=== PATIENT | female | born 1925 | race Caucasian/White ===

== ENCOUNTER 2016-04-24 14:49 | Emergency (ER) | payer MEDICARE ==
[~2016-04-24] VITALS: Ht 160 cm; Wt 65.3 kg
[~2016-04-24 14:49] MED LIST: ASPI-983 PO; ATEN50TA PO; ATENOLOL PO; ATOR40TA70 PO; BISA-10 PO; BUDE10.2; BUDE6HFA IH; CALC-342 PO; CLN.1TRX PO; DILT90TA; DILT90TA PO; LISI-556; LISI1TAB6 PO; MECL-124 PO; RT-ALBUINH IH; VIT1CAPS9 PO
--- OUTSIDE RECORDS SUMMARY | 2016-04-24 14:55 | XMS REPORT | Continuity of Care Document ---
Author Author [facility] Organization [facility] Address Unknown Phone Unavailable Care Team Providers Care Industrial Maintenance Tech Name Role Phone LENORE TOBIAS MD PCP Insurance Providers Payer Name Policy Number Subscriber Name Relationship [employer] [id number] Criselda Mcgregor 18 Self / Same As Patient Advance Directives Directive Response Recorded Date/Time Advance Directives No 06/30/15 1:46pm Resuscitation Status DNR-Pt Request 06/30/15 1:46pm Chief Complaint and Reason for Visit Chief Complaint Dizziness/Syncope Reason for Visit [id number] Problems Active Problems Medical Problem Onset Date Status BPPV (benign paroxysmal positional vertigo) Unknown Acute Chest pain Unknown Acute DIZZINESS SECONDARY TO HYPERTENSION Unknown Acute Labile hypertension Unknown Acute Non-ST elevation myocardial infarction (NSTEMI) Unknown Acute Medications Current Home Medications Medication Dose Units Route Directions Days/Qty Instructions Start Date Budesonide/Formoterol Fumarate 10.2 Gm 2 Puff Inhalation Twice A Day 04/04/10 Atenolol 50 Mg 50 Mg Oral Daily 11/28/14 Aspirin 81 Mg 81 Mg Oral Daily 11/28/14 Calcium Citrate/Vitamin D3 1 Each 1 Tab Oral Daily 11/28/14 Bisacodyl 5 Mg 5 Mg Oral Daily as needed for Constipation 11/28/14 Albuterol Sulfate 8.5 Gm 2 Puff Inhalation Every 4HRS as needed for Shortness Of Breath 11/28/14 Atorvastatin Calcium 40 Mg 30 06/30/15 Diltiazem Hcl 90 Mg 180 06/30/15 Lisinopril 5 Mg 30 06/30/15 Budesonide/Formoterol Fumarate 10.2 Gm 10 06/30/15 Past Home Medications Medication Directions Ordered Status [Atenolol] , 1 Tab Oral Daily 04/04/10 Discontinued Hctz/Lisinopril (Zestoretic) 1 Each Tablet, 1 Each Oral Daily 01/13/13 Discontinued Clonidine Hcl 0.1 Mg Tab, 0.1 Mg Oral Twice A Day 01/13/13 Discontinued Vit C/Vit E/Lutein/Min/[place]-3 1 Each Capsule, 1 Cap Oral Daily 11/28/14 Discontinued Diltiazem Hcl 90 Mg Tablet, 90 Mg Oral Twice A Day 11/28/14 Discontinued Social History Social History Problem Response Recorded Date/Time Alcohol Use Denies Use 06/30/2015 1:46pm Recreational Drug Use No 06/30/2015 1:46pm Recent Foreign Travel No 06/30/2015 1:47pm Recent Infectious Disease Exposure No 06/30/2015 1:47pm Hospitalization with Isolation Denies 06/30/2015 1:47pm Smoking Status Never a Smoker 06/30/2015 1:46pm Do you dip or chew tobacco? No 06/30/2015 1:46pm Query Response Start Date Stop Date Smoking Status Never a Smoker Hospital Discharge Instructions No hospital discharge instructions. Plan of Care Discharge Date 06/30/15 3:06pm Disposition 01 HOME, SELF-CARE Condition at Discharge Improved Instructions/Education Provided Vertigo (ED) Prescriptions See Medication Section Referrals LENORE TOBIAS MD - Primary Care Physician Additional Instructions/Education 1. Follow up with Dr Tobias this week 2. Return to ER for any concerns All discharge instructions reviewed with patient and/or family. Voiced understanding. Functional Status Query Response Date Recorded Patient Orientation Person Place Time Situation June 30, 2015 1:50pm Comprehension Ability Understands Concepts June 30, 2015 1:50pm Allergies, Adverse Reactions, Alerts No known allergies. Immunizations Name Given Type Date of Pneumonia Vaccine 02/08/09 Historical Date of Influenza Vaccine 11/21/14 Historical Vital Signs Acute Vital Signs Vital Response Date/Time Temperature (Fahrenheit) 97.5 degrees F (97.6 - 99.5) 06/30/2015 1:47pm Temperature (Calculated Celsius) 36.58860 degrees C (36.4 - 37.5) 06/30/2015 1:47pm Temperature Source Temporal 06/30/2015 1:47pm Pulse Rate (adult) 95 bpm (60 - 90) 06/30/2015 1:47pm Respiratory Rate 18 bpm (12 - 24) 06/30/2015 1:47pm O2 Sat by Pulse Oximetry 94 % (88 - 100) 06/30/2015 1:47pm Blood Pressure 199/99 mm Hg 06/30/2015 1:47pm Blood Pressure Mean 132 mm Hg 06/30/2015 1:47pm Pain Pain Intensity 0 06/30/2015 1:47pm Height (Feet) 5 feet 06/30/2015 1:47pm Height (Inches) 3.00 inches 06/30/2015 1:47pm Height (Calculated Centimeters) 160.271586 cm 06/30/2015 1:47pm Weight (Pounds) 167 pounds 06/30/2015 1:47pm Weight (Ounces) 14.0 oz 06/30/2015 1:47pm Weight (Calculated Grams) 68074.820 gm 06/30/2015 1:47pm Weight (Calculated Kilograms) 76.036560 kilograms 06/30/2015 1:47pm Calculated BMI 30.29 06/30/2015 1:47pm Results Laboratory Results Test Name Result Units Flags Reference Collection Date/Time Result Date/ Time Comments White Blood Count 5.6 10^3/uL 4.3-11.0 06/30/2015 2:27pm 06/30/2015 2: 34pm Red Blood Count 4.16 10^6/uL L 4.35-5.85 06/30/2015 2:27pm 06/30/2015 2: 34pm Hemoglobin 13.2 G/DL 11.5-16.0 06/30/2015 2:27pm 06/30/2015 2:34pm Hematocrit 39 % 35-52 06/30/2015 2:27pm 06/30/2015 2:34pm Mean Corpuscular Volume 93 FL 80-99 06/30/2015 2:27pm 06/30/2015 2: 34pm Mean Corpuscular Hemoglobin 32 PG 25-34 06/30/2015 2:27pm 06/30/2015 2: 34pm Mean Corpuscular Hemoglobin Concent 34 G/DL 32-36 06/30/2015 2: 2:34pm Red Cell Distribution Width 13.4 % 10.0-14.5 06/30/2015 2:2015 2:34pm Platelet Count 162 10^3/uL 130-400 06/30/2015 2:06/30/2015 2:34pm Mean Platelet Volume 11.2 FL H 7.4-10.4 06/30/2015 2:06/30/2015 2: 34pm Neutrophils (%) (Auto) 69 % 42-75 06/30/2015 2:06/30/2015 2:34pm Lymphocytes (%) (Auto) 22 % 12-44 06/30/2015 2:06/30/2015 2:34pm Monocytes (%) (Auto) 8 % 0-12 06/30/2015 2:06/30/2015 2:34pm Eosinophils (%) (Auto) 1 % 0-10 06/30/2015 2:06/30/2015 2:34pm Basophils (%) (Auto) 0 % 0-10 06/30/2015 2:06/30/2015 2:34pm Neutrophils # (Auto) 3.9 X 10^3 1.8-7.8 06/30/2015 2:06/30/2015 2: 34pm Lymphocytes # (Auto) 1.2 X 10^3 1.0-4.0 06/30/2015 2:06/30/2015 2: 34pm Monocytes # (Auto) 0.4 X 10^3 0.0-1.0 06/30/2015 2:06/30/2015 2: 34pm Eosinophils # (Auto) 0.1 10^3/uL 0.0-0.3 06/30/2015 2:06/30/2015 2 :34pm Basophils # (Auto) 0.0 10^3/uL 0.0-0.1 06/30/2015 2:06/30/2015 2: 34pm Prothrombin Time 13.9 SEC 12.2-14.7 06/30/2015 2:06/30/2015 2: 45pm INR Comment 1.1 0.8-1.4 06/30/2015 2:27pm 06/30/2015 2:45pm INTERPRETIVE DATA SUGGESTED THERAPEUTIC RANGE FOR INR'S: VENOUS THROMBOSIS, PULMONARY EMBOLISM, OR PREVENTION OF SYSTEMIC EMBOLISM (EG. IN ATRIAL FIBRILLATION): 2.0 - 3.0 MECHANICAL PROSTHETIC HEART VALVES: 2.5 - 3.5* *NOTE: INR'S UP TO 4.5 MAY BE NECESSARY IN SELECTED GROUPS OF HIGH RISK PATIENTS. [employer] CONSENSUS CONFERENCE ON ANTITHROMBOTIC THERAPY (2000). Urine Color YELLOW 06/30/2015 2:28pm 06/30/2015 2:44pm Urine Clarity CLEAR 06/30/2015 2:28pm 06/30/2015 2:44pm Urine pH 7 5-9 06/30/2015 2:28pm 06/30/2015 2:44pm Urine Specific [place] 1.015 * 1.016-1.022 06/30/2015 2:28pm 2015 2:44pm Urine Protein NEGATIVE NEGATIVE 06/30/2015 2:28pm 06/30/2015 2:44pm Urine Glucose (UA) NEGATIVE NEGATIVE 06/30/2015 2:28pm 06/30/2015 2: 44pm Urine RBC (Auto) 2+ * NEGATIVE 06/30/2015 2:28pm 06/30/2015 2:44pm Urine Ketones NEGATIVE NEGATIVE 06/30/2015 2:28pm 06/30/2015 2:44pm Urine Nitrite NEGATIVE NEGATIVE 06/30/2015 2:28pm 06/30/2015 2:44pm Urine Bilirubin NEGATIVE NEGATIVE 06/30/2015 2:pm 06/30/2015 2: 44pm Urine Urobilinogen NORMAL MG/DL NORMAL 06/30/2015 2:28pm 06/30/2015 2: 44pm Urine Leukocyte Esterase NEGATIVE NEGATIVE 06/30/2015 2:28pm 2015 2:44pm Urine RBC 2-5 /HPF * 06/30/2015 2:28pm 06/30/2015 2:44pm Urine WBC NONE /HPF 06/30/2015 2:28pm 06/30/2015 2:44pm Urine Bacteria NEGATIVE /HPF 06/30/2015 2:28pm 06/30/2015 2:44pm Urine Squamous Epithelial Cells 2-5 /HPF 06/30/2015 2:28pm 2015 2:44pm Urine Crystals NONE /LPF 06/30/2015 2:06/30/2015 2:44pm Urine Casts NONE /LPF 06/30/2015 2:06/30/2015 2:44pm Urine Mucus NEGATIVE /LPF 06/30/2015 2:06/30/2015 2:44pm Urine Culture Indicated NO 06/30/2015 2:06/30/2015 2:44pm Sodium Level 138 MMOL/L 135-145 06/30/2015 2:06/30/2015 2:55pm Potassium Level 4.6 MMOL/L 3.6-5.0 06/30/2015 2:06/30/2015 2:55pm Chloride Level 104 MMOL/L 98-107 06/30/2015 2:06/30/2015 2:55pm Carbon Dioxide Level 22 MMOL/L 21-32 06/30/2015 2:06/30/2015 2: 55pm Anion Gap 12 MMOL/L 5-14 06/30/2015 2:06/30/2015 2:55pm Blood Urea Nitrogen 23 MG/DL H 7-18 06/30/2015 2:06/30/2015 2:55pm Creatinine 0.87 MG/DL 0.60-1.30 06/30/2015 2:06/30/2015 2:55pm BUN/Creatinine Ratio 06/30/2015 2:06/30/2015 2:55pm Estimat Glomerular Filtration Rate > 60 06/30/2015 2:2015 2:55pm GFR INTERPRETIVE DATA UNITS FOR ESTIMATED GFR (eGFR): mL/min/1.73 M2 REFERENCE RANGE FOR ESTIMATED GFR (eGFR) eGFR NORMAL eGFR >60 MODERATELY DECREASED eGFR 30-59 SEVERLY DECREASED eGFR 15-29 KIDNEY FAILURE <15 (OR DIALYSIS) Glucose Level 191 MG/DL H 70-105 06/30/2015 2:06/30/2015 2:55pm Calcium Level 9.0 MG/DL 8.5-10.1 06/30/2015 2:06/30/2015 2:55pm Total Bilirubin 0.4 MG/DL 0.1-1.0 06/30/2015 2:06/30/2015 2:55pm Alkaline Phosphatase 44 U/L 40-136 06/30/2015 2:27pm 06/30/2015 2:55pm Aspartate Amino Transf (AST/SGOT) 17 U/L 5-34 06/30/2015 2:27pm 2015 2:55pm Alanine Aminotransferase (ALT/SGPT) 13 U/L 0-55 06/30/2015 2:27pm 06/29 2:55pm Total Protein 6.2 G/DL L 6.4-8.2 06/30/2015 2:27pm 06/30/2015 2:55pm Albumin 4.0 G/DL 3.2-4.5 06/30/2015 2:27pm 06/30/2015 2:55pm Procedures No known history of procedures. Encounters Encounter Location Arrival/Admit Date Discharge/Depart Date Attending Provider Departed Emergency Room [facility] 06/30/15 1:32pm 06/29 3:06pm MERNA ESPINOZA APRN Recent Diagnosis
--- NOTE | 2016-04-24 15:09 | ED General ---
General Stated Complaint: R SIDE OF HEAD INJ Source of Information: Patient Exam Limitations: No Limitations History of Present Illness Time Seen by Provider: 15:07 Initial Comments To ER with reports of head injury. Patient states that she was working outside he became dizzy and then passed out. She states that she occasionally gets "dizzy spells". At this time she feels back to normal. She states that she did briefly lose consciousness. She has a hematoma to the right side of the top of her scalp. Her only anticoagulant is a daily aspirin. At this time she feels otherwise back to normal with exception of a headache. She denies injuring herself anywhere else, no other pains, ambulatory after this event. She denies any shortness of breath, palpitations or other associated symptoms. Timing/Duration: 1-2 Days Severity: Moderate Allergies and Home Medications Allergies Coded Allergies: No Known Drug Allergies (Unverified , 04/04/10) Home Medications Albuterol Sulfate 8.5 Gm Hfa.aer.ad 2 PUFF IH Q4H PRN PRN SHORTNESS OF BREATH ( Reported) Aspirin 81 Mg Tablet.dr 81 MG PO DAILY (Reported) Atenolol 50 Mg Tablet 50 MG PO DAILY (Reported) Atorvastatin Calcium 40 Mg Tablet #30 (Reported) Bisacodyl 5 Mg Tablet.dr 5 MG PO DAILY PRN PRN CONSTIPATION (Reported) Budesonide/Formoterol Fumarate 10.2 Gm Hfa.aer.ad 2 PUFF IH BID (Reported) Budesonide/Formoterol Fumarate 10.2 Gm Hfa.aer.ad #10 (Reported) Calcium Citrate/Vitamin D3 1 Each Tablet 1 TAB PO DAILY (Reported) Diltiazem HCl 90 Mg Tablet #180 (Reported) Lisinopril 5 Mg Tablet #30 (Reported) Constitutional: see HPI EENTM: see HPI Respiratory: no symptoms reported Cardiovascular: see HPINo chest pain, No edema, No Hx of Intervention, No palpitations, syncope Genitourinary: no symptoms reported Musculoskeletal: no symptoms reported Skin: no symptoms reported Psychiatric/Neurological: No Symptoms Reported Hematologic/Lymphatic: No Symptoms Reported Past Iwfrpmy-Naoodh-Vuzegw Hx Patient Social History Recent Foreign Travel: No Contact w/Someone Who Travel: No Immunizations Up To Date Date of Pneumonia Vaccine: Feb 08, 2009 Date of Influenza Vaccine: Nov 21, 2014 Surgeries HX Surgeries: Yes (CATARACTS REMOVE) Surgeries: Adenoidectomy, CABG, Eye Surgery, Gallbladder, Tonsillectomy Respiratory Hx Respiratory Disorders: Yes Respiratory Disorders: COPD, Emphysema Cardiovascular Hx Cardiac Disorders: Yes (aortic stenosis, pulmonary hypertension) Cardiac Disorders: Hypertension Neurological Hx Neurological Disorders: No Reproductive System Hx Reproductive Disorders: No Genitourinary Hx Genitourinary Disorders: No Gastrointestinal Hx Gastrointestinal Disorders: No Musculoskeletal Hx Musculoskeletal Disorders: No Endocrine Hx Endocrine Disorders: No HEENT HX ENT Disorders: Yes HEENT Disorders: Cataract Hearing Impairment: Hard of Hearing Cancer Hx Cancer: No Psychosocial Hx Psychiatric Problems: No Integumentary HX Skin/Integumentary Disorder: No Blood Transfusions Hx Blood Disorders: No Family Medical History Significant Family History: Heart Disease Physical Exam Vital Signs Vital Sign - Last 12Hours 04/24/16 15:00 Temp 98.1 Pulse 95 Resp 16 B/P 151/80 Pulse Ox 96 Capillary Refill : General Appearance: No Apparent Distress WD/WN Other (alert, GCS 15, talkative and pleasant) Eyes: Bilateral Eye EOMI, Bilateral Eye Normal Inspection, Bilateral Eye PERRL HEENT: PERRL/EOMI TMs Normal Other (there isn't actively oozing stellate laceration to the right parietal scalp) Neck: Full Range of MotionNo Tender Lateral, No Tender Midline Respiratory: No Accessory Muscle Use No Respiratory Distress Cardiovascular: Regular Rate, Rhythm No Edema Normal Peripheral Pulses Gastrointestinal: Non Tender Soft Back: Other (she does have an abrasion to the right scapula, a half-dollar sized ecchymosis medial to the left scapula) Extremity: Normal Capillary Refill Normal Inspection Neurologic/Psychiatric: Alert Oriented x3 No Motor/Sensory Deficits Focused Exam Lactic Acid Level Laboratory Tests Test 04/24/16 15:34 Alanine Aminotransferase (ALT/SGPT) 16U/L (0-55) Albumin 4.0G/DL (3.2-4.5) Alkaline Phosphatase 39U/L (40-136) L Anion Gap 9MMOL/L (5-14) Aspartate Amino Transf (AST/SGOT) 22U/L (5-34) B-Type Natriuretic Peptide 88.5PG/ML (<100.0) BUN/Creatinine Ratio 23 Blood Urea Nitrogen 16MG/DL (7-18) Calcium Level 8.9MG/DL (8.5-10.1) Carbon Dioxide Level 23MMOL/L (21-32) Chloride Level 95MMOL/L (98-107) L Creatinine 0.69MG/DL (0.60-1.30) Estimat Glomerular Filtration Rate > 60 Glucose Level 101MG/DL (70-105) Magnesium Level 1.8MG/DL (1.8-2.4) Potassium Level 4.2MMOL/L (3.6-5.0) Sodium Level 127MMOL/L (135-145) L Total Bilirubin 0.7MG/DL (0.1-1.0) Total Protein 6.0G/DL (6.4-8.2) L Troponin I < 0.30NG/ML (<0.30) Laceration Repair : Wound Location: Scalp Wound Length (cm): 3 Wound's Depth, Shape: sub Q Wound Explored: clean Irrigated w/ Saline (ccs): 500 Anesthesia: Lidocaine w/ Epi Volume Anesthetic (ccs): 3 Suture: Prolene, Vicryl Suture Size: 3-0, 4-0 Number of Sutures: 5 Layer Closure?: 1 Number Deep Layer Sutures: 0 Progress Anesthetized with 3ml of 1% lidocaine with epinephrine. peroxide used to remove clots adherent to hair and wound irrigated with saline. Small stream of pulsatile bleeding noted. Closed with 5 sutures. 3 of these are size 4-0 prolene simple interrupted. 2 are 3-0 vicryl simple interrupted. Progress/Results/Core Measures Results/Orders Lab Results Laboratory Tests Test 04/24/16 15:34 04/24/16 16:30 Range/Units Alanine Aminotransferase (ALT/SGPT) 16 0-55 U/L Albumin 4.0 3.2-4.5 G/DL Alkaline Phosphatase 39 L 40-136 U/L Anion Gap 9 5-14 MMOL/L Aspartate Amino Transf (AST/SGOT) 22 5-34 U/L B-Type Natriuretic Peptide 88.5 <100.0 PG/ML BUN/Creatinine Ratio 23 Basophils # (Auto) 0.0 0.0-0.1 10^3/uL Basophils (%) (Auto) 1 0-10 % Blood Urea Nitrogen 16 7-18 MG/DL Calcium Level 8.9 8.5-10.1 MG/DL Carbon Dioxide Level 23 21-32 MMOL/L Chloride Level 95 L 98-107 MMOL/L Creatinine 0.69 0.60-1.30 MG/DL Eosinophils # (Auto) 0.0 0.0-0.3 10^3/uL Eosinophils (%) (Auto) 1 0-10 % Estimat Glomerular Filtration Rate > 60 Glucose Level 101 70-105 MG/DL Hematocrit 37 35-52 % Hemoglobin 12.9 11.5-16.0 G/DL Lymphocytes # (Auto) 1.9 1.0-4.0 X 10^3 Lymphocytes (%) (Auto) 33 12-44 % Magnesium Level 1.8 1.8-2.4 MG/DL Mean Corpuscular Hemoglobin 32 25-34 PG Mean Corpuscular Hemoglobin Concent 35 32-36 G/DL Mean Corpuscular Volume 91 80-99 FL Mean Platelet Volume 10.1 7.4-10.4 FL Monocytes # (Auto) 0.4 0.0-1.0 X 10^3 Monocytes (%) (Auto) 8 0-12 % Neutrophils # (Auto) 3.3 1.8-7.8 X 10^3 Neutrophils (%) (Auto) 58 42-75 % Platelet Count 192 130-400 10^3/uL Potassium Level 4.2 3.6-5.0 MMOL/L Red Blood Count 4.03 L 4.35-5.85 10^6/uL Red Cell Distribution Width 12.2 10.0-14.5 % Sodium Level 127 L 135-145 MMOL/L Total Bilirubin 0.7 0.1-1.0 MG/DL Total Protein 6.0 L 6.4-8.2 G/DL Troponin I < 0.30 <0.30 NG/ML White Blood Count 5.7 4.3-11.0 10^3/uL Urine Bacteria TRACE /HPF Urine Bilirubin NEGATIVE NEGATIVE Urine Casts NONE /LPF Urine Clarity SLIGHTLY CLOUDY Urine Color YELLOW Urine Crystals NONE /LPF Urine Culture Indicated NO Urine Glucose (UA) NEGATIVE NEGATIVE Urine Ketones 1+ H NEGATIVE Urine Leukocyte Esterase 1+ H NEGATIVE Urine Mucus NEGATIVE /LPF Urine Nitrite NEGATIVE NEGATIVE Urine Protein 1+ H NEGATIVE Urine RBC 5-10 H /HPF Urine RBC (Auto) 2+ H NEGATIVE Urine Specific [place] 1.010 L 1.016-1.022 Urine Squamous Epithelial Cells >50 H /HPF Urine Urobilinogen NORMAL NORMAL MG/DL Urine WBC 0-2 /HPF Urine pH 7 5-9 My Orders Orders-MERNA ESPINOZA APRN Cbc With Automated Diff (04/24/16 15:05) Comprehensive Metabolic Panel (04/24/16 15:05) Ua Culture If Indicated (04/24/16 15:05) Chest Pa/Lat (2 View) (04/24/16 15:05) Ekg Tracing (04/24/16 15:05) Continuous Ekg Monitoring (04/24/16 15:05) Troponin I (04/24/16 15:05) Magnesium (04/24/16 15:05) BNP (04/24/16 15:05) Ct Head/Cervical Spine Wo (04/24/16 15:05) Lidocaine/Epi 1% 1:100,000 (Xylocaine /E (04/24/16 15:45) Dipht,Pertuss(Acell),Tet Adult (Boostrix (04/24/16 16:30) Amoxicillin/Clavulanate Tablet (Augmenti (04/24/16 16:30) Medications Given in ED Current Medications Medications Dose Ordered Sig/Kev Route Start Time Stop Time Status Last Admin Dose Admin Diphtheria/ Tetanus/Acell Pertussis 0.5 ml ONCE ONCE IM 04/24/16 16:30 04/24/16 16:31 DC 04/24/16 16:35 0.5 ML Lidocaine/ Epinephrine 20 ml ONCE ONCE INJ 04/24/16 15:45 04/24/16 15:46 DC 04/24/16 16:00 20 ML Vital Signs/I&O Vital Sign - Last 12Hours 04/24/16 15:00 Temp 98.1 Pulse 95 Resp 16 B/P 151/80 Pulse Ox 96 Diagnostic Imaging Diagonstic Imaging: CT Comments NAME: JENNIFER MCGREGOR [facility] REC#: [id number] PT STATUS: REG ER : 1925 PHYSICIAN: MERNA ESPINOZA APRN ADMIT DATE: 04/24/16/ER Draft Date of Exam:04/24/16 CT HEAD/CERVICAL SPINE WO PROCEDURE: CT head and CT cervical spine without contrast. TECHNIQUE: Multiple contiguous axial images were obtained through the brain and cervical spine without the use of intravenous contrast. Sagittal and coronal reformations through the cervical spine were then performed. INDICATION: Fall. Head injury. COMPARISON: CT head without contrast 06/30/2015. FINDINGS: CT head: Large scalp hematoma/contusion overlying the right parietal bone. Osseous structures are intact. No intracranial hemorrhage, mass effect, hydrocephalus or extra-axial fluid collections. Generalized cerebral and cerebellar parenchymal volume loss. Intracranial vascular calcifications. No CT findings of acute infarction. The visualized paranasal sinuses and mastoids are negative. CT cervical spine: Mild accentuation of the normal cervical lordosis may be positional. No acute fractures. Vertebral body heights are maintained. Moderate to advanced degenerative endplate changes are most marked at C5-C7. No evidence of high-grade spinal canal narrowing on this noncontrast exam. Uncovertebral and facet arthropathy contributes to scattered mild and moderate neuroforaminal narrowing. Arterial calcifications including the carotid bifurcations. Enlarged thyroid gland is partially visualized. IMPRESSION: 1. Large scalp hematoma/contusion overlying the right parietal bone. No fractures. No acute intracranial CT findings. 2. No acute CT findings in the cervical spine. 3. Partially visualized enlarged thyroid gland. Dictated on workstation # [id number] Dict: 04/24/16 1532 Trans: 04/24/16 1541 [facility] [id number] Interpreted by: CANDI MCDERMOTT MD Electronically signed by: Departure Communication Progress Notes Family reports that patient has passed out several times and that she has seen her doctor for this. During her stay in the emergency room she is completely asymptomatic, alert and without palpitations syncope or near syncope, no shortness of breath. EKG shows a pre-existing left bundle-branch block. No chest pain. She is ambulatory to the bathroom. She will be discharged to home for outpatient follow-up in the care of her adult children. Impression Impression: Primary Impression: Scalp laceration Additional Impression: Fall Disposition: HOME, SELF-CARE Condition: Stable Departure-Patient Inst. Decision time for Depature: 16:55 Referrals: LENORE ALSTON MD (PCP/Family) Primary Care Physician Patient Instructions: Laceration Repair With Stitches (DC) Add. Discharge Instructions: 1. Return to the emergency room for any recurrent episodes of passing out, chest pain shortness of breath or any other symptoms at concern. 2. Return to the emergency room in 7 days to have the stitches removed 3. You may wash your hair this evening to get the blood out. Copy Copies To 1: LENORE ALSTON MD, PETER J APRN Apr 24, 2016 15:09
--- NOTE | 2016-04-24 15:30 | Diagnostic Imaging Report ---
INDICATION: Syncopal episode, right posterior head trauma. COMPARISON STUDY: Chest radiograph from November 2014. FINDINGS: Ill-defined density in the right infrahilar region is again identified. This is unchanged or slightly smaller. Coronary artery bypass graft changes are again identified. Heart size and vascularity are normal. There are no pleural effusions. IMPRESSION: Stable chest. Dictated by: Dictated on workstation # [id number]
[2016-04-24 15:38] LABS: BASOPHILS % (AUTO) 1 % (0-10); EOSINOPHILS % (AUTO) 1 % (0-10); LYMPHOCYTES # (AUTO) 1.9 X 10^3 (1.0-4.0); LYMPHOCYTES % (AUTO) 33 % (12-44); MEAN CORPUSCULAR HEMOGLOBIN 32 PG (25-34); MEAN CORPUSCULAR HGB CONC 35 G/DL (32-36); MEAN CORPUSCULAR VOLUME 91 FL (80-99); MEAN PLATELET VOLUME 10.1 FL (7.4-10.4); MONOCYTES # (AUTO) 0.4 X 10^3 (0.0-1.0); MONOCYTES % (AUTO) 8 % (0-12); NEUTROPHILS # (AUTO) 3.3 X 10^3 (1.8-7.8); NEUTROPHILS % (AUTO) 58 % (42-75); PLATELET COUNT 192 10^3/uL (130-400); RED BLOOD COUNT 4.03 10^6/uL (4.35-5.85); RED CELL DISTRIBUTION WIDTH 12.2 % (10.0-14.5); WHITE BLOOD COUNT 5.7 10^3/uL (4.3-11.0)
--- NOTE | 2016-04-24 15:41 | Diagnostic Imaging Report ---
PROCEDURE: CT head and CT cervical spine without contrast. TECHNIQUE: Multiple contiguous axial images were obtained through the brain and cervical spine without the use of intravenous contrast. Sagittal and coronal reformations through the cervical spine were then performed. INDICATION: Fall. Head injury. COMPARISON: CT head without contrast 06/30/2015. FINDINGS: CT head: Large scalp hematoma/contusion overlying the right parietal bone. Osseous structures are intact. No intracranial hemorrhage, mass effect, hydrocephalus or extra-axial fluid collections. Generalized cerebral and cerebellar parenchymal volume loss. Intracranial vascular calcifications. No CT findings of acute infarction. The visualized paranasal sinuses and mastoids are negative. CT cervical spine: Mild accentuation of the normal cervical lordosis may be positional. No acute fractures. Vertebral body heights are maintained. Moderate to advanced degenerative endplate changes are most marked at C5-C7. No evidence of high-grade spinal canal narrowing on this noncontrast exam. Uncovertebral and facet arthropathy contributes to scattered mild and moderate neuroforaminal narrowing. Arterial calcifications including the carotid bifurcations. Enlarged thyroid gland is partially visualized. IMPRESSION: 1. Large scalp hematoma/contusion overlying the right parietal bone. No fractures. No acute intracranial CT findings. 2. No acute CT findings in the cervical spine. 3. Partially visualized enlarged thyroid gland. Dictated by: Dictated on workstation # [id number]
[2016-04-24] MEDS ORDERED: LIDOCAINE/EPI 1%-1:100,000 (XYLOCAINE) 20ML INJ ONE (15:45)
[2016-04-24 15:57] LABS: ALANINE AMINOTRANSFERASE 16 U/L (0-55); ANION GAP 9 MMOL/L (5-14); ASPARTATE AMINO TRANSFERASE 22 U/L (5-34); BILIRUBIN,TOTAL 0.7 MG/DL (0.1-1.0); BLOOD UREA NITROGEN 16 MG/DL (7-18); BUN/CREATININE RATIO 23; CALCIUM 8.9 MG/DL (8.5-10.1); CARBON DIOXIDE 23 MMOL/L (21-32); CHLORIDE 95 MMOL/L (98-107); CREATININE SERUM 0.69 MG/DL (0.60-1.30); GFR ESTIMATED > 60; GLUCOSE 101 MG/DL (70-105); MAGNESIUM 1.8 MG/DL (1.8-2.4); POTASSIUM 4.2 MMOL/L (3.6-5.0); SODIUM 127 MMOL/L (135-145)
[2016-04-24 16:03] LABS: TROPONIN I < 0.30 NG/ML (<0.30)
[2016-04-24] MEDS ORDERED: TETANUS,DIPTH,PERTUSS P/F (BOOSTRIX) 0.5 ML VIAL IM ONE (16:30)
[2016-04-24] MEDS ORDERED: AUGMENTIN 500 MG TAB (AMOXICILLIN/CLAVULANATE) PO SCH (16:30)
[2016-04-24 16:38] LABS: BILIRUBIN,URINE NEGATIVE (NEGATIVE); KETONES,URINE 1+ (NEGATIVE); LEUKOCYTE ESTERASE ,URINE 1+ (NEGATIVE); NITRITE,URINE NEGATIVE (NEGATIVE); PH,URINE 7 (5-9); PROTEIN,URINE 1+ (NEGATIVE); UROBILINOGEN,URINE NORMAL (NORMAL)
[2016-04-24 16:47] LABS: SQUAMOUS EPITHELIAL CELL,UR >50 /HPF; WBC,URINE 0-2 /HPF
[2016-04-24 17:39] VITALS: BP 151/80
[2016-04-30] MEDS ORDERED: SENN8.6T10 PO (09:12)
[2016-04-30] MEDS ORDERED: DOCU100C37 PO (09:12)
[2016-05-04] MEDS ORDERED: PRD20T PO (08:55)
== END 2016-04-24 17:39 | disposition home or self-care (01) ==
LOC: EDUNIT# 14:49 → ER 14:51
DX: S01.01XA Laceration without foreign body of scalp, initial encounter (principal); Z23 Encounter for immunization; R42 Dizziness and giddiness; R55 Syncope and collapse; I10 Essential (primary) hypertension; J44.9 Chronic obstructive pulmonary disease, unspecified; Z79.82 Long term (current) use of aspirin; Z79.899 Other long term (current) drug therapy; Z95.1 Presence of aortocoronary bypass graft; W18.30XA Fall on same level, unspecified, initial encounter; Y92.017 Garden or yard in single-family (private) house as the place of occurrence of the external cause; Y93.H2 Activity, gardening and landscaping; Y99.8 Other external cause status
CPT/HCPCS: 12002; 36415; 70450; 71020; 72125; 80053; 81000; 83735; 83880; 84484; 85025; 90471; 90715; 93005